=== PATIENT | female | born 1945 | race Caucasian/White ===

== ENCOUNTER 2021-07-15 10:48 | Day surgery (SDC) | payer MEDICARE, OTHER | END 2021-07-15 12:48 | disposition home or self-care (01) | LOC: CSHSDC/OP 10:48 | PROVIDERS: ATTEND Emergency Medicine | DX: Z23 Encounter for immunization (principal); U07.1 COVID-19 | CPT/HCPCS: 96365; M0243; Q0244; J3490 ==